=== PATIENT | male | born 1975 | race Caucasian/White ===

== ENCOUNTER 2020-06-14 20:27 | Emergency (ER) | payer BC ==
[~2020-06-14] VITALS: Ht 182.9 cm; Wt 95.3 kg
[2020-06-14 20:47] VITALS: BP 158/102; Ht 182.9 cm; Wt 95.3 kg
== END 2020-06-14 22:51 | disposition left against medical advice (07) ==
LOC: ED 20:27
DX: Z53.21 Procedure and treatment not carried out due to patient leaving prior to being seen by health care provider (principal)